=== PATIENT | female | born 1950 | race Caucasian/White ===

== ENCOUNTER 2023-07-27 08:10 | Inpatient (IN) | payer MEDICARE, BC ==
[~2023-07-27] VITALS: Ht 167.6 cm; Wt 144.6 kg
[2023-07-27 08:25] LABS: BASOPHILS % (AUTO) 0.7 % (0-1); EOSINOPHILS # (AUTO) 0.2 X10'3 (0-0.9); EOSINOPHILS % (AUTO) 5.4 % (0-6); HEMATOCRIT 35.5 % (35.0-45.0); HEMOGLOBIN 11.6 g/dl (12.0-16.0); LYMPHOCYTES # (AUTO) 0.9 X10'3 (1.1-4.8); LYMPHOCYTES % (AUTO) 28.4 % (21-51); MEAN CORPUSCULAR HEMOGLOBIN 33.4 PG (27.0-31.0); MEAN CORPUSCULAR HGB CONC 32.8 g/dL (33.0-36.5); MEAN CORPUSCULAR VOLUME 101.8 FL (78-98); MEAN PLATELET VOLUME 9.7 FL (7.4-10.4); MONOCYTES # (AUTO) 0.2 X10'3 (0-0.9); NEUTROPHILS # (AUTO) 1.9 X10'3 (1.8-7.7); NEUTROPHILS % (AUTO) 58.5 % (42-75); PLATELET COUNT 101 X10'3 (140-440); RED BLOOD COUNT 3.48 X10'6 (4.20-5.60); RED CELL DISTRIBUTION WIDTH 15.9 % (11.5-14.5); WHITE BLOOD COUNT 3.3 X10'3 (4.5-11.0)
[2023-07-27 09:37] LABS: ALBUMIN 2.9 G/DL (3.4-5.0); ANION GAP 11 (8-16); BLOOD UREA NITROGEN 16 MG/DL (7-18); BUN/CREATININE RATIO 12.8 (10.0-20.0); CHLORIDE 102 MMOL/L (99-107); CREATININE 1.25 MG/DL (0.40-0.90); GLUCOSE 116 MG/DL (70-104); POTASSIUM 3.7 MMOL/L (3.5-5.1); PRO BRAIN NATRIURETIC PEPTIDE 367 PG/ML (0-125); SODIUM 141 MMOL/L (135-145); TOTAL CARBON DIOXIDE 27.8 MMOL/L (24-32); eCRCL 38 ML/MIN; eGFR 42 ML/MIN
[2023-07-27] MEDS ORDERED: bisacodyl 10mg suppository rectal RC PRN (13:05)
[2023-07-27] MEDS ORDERED: ondansetron 4mg rapidly disintigrating tab PO PRN (13:05)
[2023-07-27] MEDS ORDERED: morphine 2 MG/ML inj. syringe IV PRN ×2 (13:05)
[2023-07-27] MEDS ORDERED: acetaminophen 325mg tablet PO PRN ×2 (13:05)
[2023-07-27] MEDS ORDERED: acetaminophen 650mg rectal suppository RC PRN (13:05)
[2023-07-27] MEDS: furosemide 40mg/4ml inj IV ONE (13:05)
[2023-07-27] MEDS ORDERED: ipratropium/albuterol 3ml nebule NEB PRN (13:05)
[2023-07-27] MEDS ORDERED: diphenhydrAMINE 50 mg/ml inj IV PRN (13:05)
[2023-07-27] MEDS ORDERED: HYDROcodone/acetaminophen 5mg/325mg tablet PO PRN (13:05)
[2023-07-27] MEDS ORDERED: ondansetron/PF 4mg/2ml inj IV PRN (13:05)
[2023-07-27] MEDS ORDERED: magnesium hydroxide 30ml (MOM) UD suspension PO PRN (13:05)
[2023-07-27] MEDS: normal saline 1000ml 1,000 ML IV SCH (13:33)
[2023-07-27 13:51] LABS: BILIRUBIN,URINE NEGATIVE (Neg); CLARITY,URINE SLIGHTLY CLOUDY (Clear); COLOR,URINE YELLOW (Yellow); GLUCOSE, URINE NEGATIVE (Neg); KETONES,URINE NEGATIVE (Neg); LEUKOCYTE ESTERASE ,URINE NEGATIVE (Neg); NITRITES, URINE NEGATIVE (Neg); OCCULT BLOOD,URINE NEGATIVE (Neg); PROTEIN,URINE NEGATIVE (Neg); UROBILINOGEN,URINE 0.2 E.U/dL (0.2-1.0)
[2023-07-27] MEDS ORDERED: PANT40TA54 PO (13:53)
[2023-07-27] MEDS ORDERED: ATOR40TA72 PO (13:57)
[2023-07-27] MEDS ORDERED: LOSA25TA41 PO (13:57)
[2023-07-27 14:00] LABS: UA COLLECTION TYPE CLN CATCH MIDSTREAM
[2023-07-27 14:02] LABS: URINE AMPHETAMINE SCREEN NEGATIVE (Neg); URINE BARBITUATE SCREEN NEGATIVE (Neg); URINE BENZODIAZEPINES SCREEN NEGATIVE (Neg); URINE CANNABINOID SCREEN NEGATIVE (Neg); URINE COCAINE SCREEN NEGATIVE (Neg); URINE METHADONE SCREEN NEGATIVE (Neg); URINE OPIATE SCREEN NEGATIVE (Neg); URINE PHENCYCLIDINE SCREEN NEGATIVE (Neg)
[2023-07-27 14:03] LABS: BACTERIA,URINE NONE SEEN /HPF (Neg); RBC,URINE NONE SEEN /HPF (0-2); SQUAMOUS EPITHELIAL CELL,UR NONE SEEN /LPF (FEW); WBC,URINE NONE SEEN /HPF (0-4)
[2023-07-27 14:08] LABS: CREATINE KINASE 39 U/L (26-192); HEMOGLOBIN A1C 5.5 % (4.5-6.2); PHOSPHORUS 3.5 MG/DL (2.3-4.5); THYROID STIMULATING HORMONE 7.59 ulU/ml (0.34-4.50)
[2023-07-27 14:09] LABS: ETHANOL < 10 MG/DL (<10)
[2023-07-27 14:10] LABS: APTT 28 SECONDS (22-32); D-DIMER 1.33 MG/L FEU (0-0.50); INR 1.1 INR; PROTHROMBIN TIME 11.8 SECONDS (9.0-12.0)
[2023-07-27] MEDS ORDERED: FURO20TA4 PO (14:11)
[2023-07-27] MEDS ORDERED: METO25TA6 PO (14:13)
[2023-07-27] MEDS ORDERED: CYAN-34 PO ×2 (14:14→14:29)
[2023-07-27] MEDS ORDERED: FURO-150 PO (14:29)
[2023-07-27 14:43] VITALS: PULSE 64; RESP 15; O2SAT 98
[2023-07-27] MEDS: heparin, porcine 5000 units/ml vial SQ SCH (16:20)
[2023-07-27 19:05] VITALS: BP 121/41; PULSE 74; RESP 16; TEMP 98.7; O2SAT 96
[2023-07-27 19:55] VITALS: PULSE 74; RESP 16; O2SAT 96
[2023-07-27 20:00] VITALS: RESP 13; O2SAT 92
[2023-07-27] MEDS: docusate sod 100mg capsule PO SCH (20:02)
[2023-07-27] MEDS: furosemide 40mg/4ml inj IV SCH (20:03)
[2023-07-27] MEDS: HYDROcodone/acetaminophen 10/325mg tab PO PRN (20:03)
[2023-07-27] MEDS: mag hydrox/Alum hydrox/simeth 30ml oral suspension PO PRN (20:23)
[2023-07-27 22:00] VITALS: BP 118/39; PULSE 75; RESP 13; TEMP 98.7; O2SAT 92
[2023-07-28] VITALS (7 sets, daily range): BP systolic 109–125; BP diastolic 41–48; PULSE 56–76; RESP 12–20; TEMP 97.9–98.4; O2SAT 92–97
[2023-07-28] MEDS: pantoprazole 40mg Tablet.DR PO SCH (08:15)
[2023-07-28 09:05] LABS: BASOPHILS % (AUTO) 0.7 % (0-1); EOSINOPHILS # (AUTO) 0.1 X10'3 (0-0.9); EOSINOPHILS % (AUTO) 5.4 % (0-6); HEMATOCRIT 32.5 % (35.0-45.0); HEMOGLOBIN 10.7 g/dl (12.0-16.0); LYMPHOCYTES # (AUTO) 0.9 X10'3 (1.1-4.8); LYMPHOCYTES % (AUTO) 32.8 % (21-51); MEAN CORPUSCULAR HEMOGLOBIN 33.5 PG (27.0-31.0); MEAN CORPUSCULAR VOLUME 101.6 FL (78-98); MEAN PLATELET VOLUME 10.5 FL (7.4-10.4); MONOCYTES # (AUTO) 0.2 X10'3 (0-0.9); NEUTROPHILS # (AUTO) 1.5 X10'3 (1.8-7.7); NEUTROPHILS % (AUTO) 54.1 % (42-75); PLATELET COUNT 84 X10'3 (140-440); RED CELL DISTRIBUTION WIDTH 15.8 % (11.5-14.5); WHITE BLOOD COUNT 2.7 X10'3 (4.5-11.0)
[2023-07-28 10:42] LABS: ANISOCYTOSIS 1+; PLATELET ESTIMATE DECREASED; TOTAL CELLS COUNTED 100
[2023-07-28 11:59] LABS: ALANINE AMINOTRANSFERASE 30 U/L (12-78); ALBUMIN 2.5 G/DL (3.4-5.0); ALBUMIN/GLOBULIN RATIO 0.7 (1.1-1.5); ALKALINE PHOSPHATASE 115 IU/L (46-116); ANION GAP 13 (8-16); ASPARTATE AMINO TRANSFERASE 44 U/L (10-37); BILIRUBIN,TOTAL 0.9 MG/DL (0.1-1.0); BLOOD UREA NITROGEN 15 MG/DL (7-18); BUN/CREATININE RATIO 13.6 (10.0-20.0); CALCIUM 8.9 MG/DL (8.5-10.1); CHLORIDE 104 MMOL/L (99-107); CHOL/HDL RATIO 2.4 (0.00-4.99); CHOLESTEROL 107 MG/DL (0-200); GLUCOSE 104 MG/DL (70-104); HDL CHOLESTEROL 44 MG/DL (35-60); LDL CHOLESTEROL 56 MG/DL (50-100); POTASSIUM 3.5 MMOL/L (3.5-5.1); SODIUM 144 MMOL/L (135-145); TOTAL CARBON DIOXIDE 26.9 MMOL/L (24-32); TOTAL PROTEIN 6.1 G/DL (6.4-8.2); TRIGLYCERIDES 68 MG/DL (20-135); eCRCL 43 ML/MIN; eGFR 49 ML/MIN
[2023-07-28] MEDS ORDERED: LORA10CA PO (13:34)
[2023-07-28] MEDS: heparin, porcine 5000 units/ml vial SQ SCH (19:16)
[2023-07-29] VITALS (8 sets, daily range): BP systolic 104–125; BP diastolic 44–48; PULSE 62–79; RESP 16–22; TEMP 97.4–98.7; O2SAT 95–100
[2023-07-29 06:43] LABS: BASOPHILS % (AUTO) 0.8 % (0-1); EOSINOPHILS # (AUTO) 0.2 X10'3 (0-0.9); EOSINOPHILS % (AUTO) 8.2 % (0-6); HEMATOCRIT 33.4 % (35.0-45.0); HEMOGLOBIN 11.1 g/dl (12.0-16.0); LYMPHOCYTES # (AUTO) 0.8 X10'3 (1.1-4.8); LYMPHOCYTES % (AUTO) 30.4 % (21-51); MEAN CORPUSCULAR HEMOGLOBIN 33.7 PG (27.0-31.0); MEAN CORPUSCULAR HGB CONC 33.2 g/dL (33.0-36.5); MEAN CORPUSCULAR VOLUME 101.4 FL (78-98); MEAN PLATELET VOLUME 10.2 FL (7.4-10.4); MONOCYTES # (AUTO) 0.2 X10'3 (0-0.9); MONOCYTES % (AUTO) 7.6 % (2-12); NEUTROPHILS # (AUTO) 1.4 X10'3 (1.8-7.7); PLATELET COUNT 82 X10'3 (140-440); WHITE BLOOD COUNT 2.7 X10'3 (4.5-11.0)
[2023-07-29 07:15] LABS: ALANINE AMINOTRANSFERASE 26 U/L (12-78); ALBUMIN 2.3 G/DL (3.4-5.0); ALBUMIN/GLOBULIN RATIO 0.6 (1.1-1.5); ALKALINE PHOSPHATASE 112 IU/L (46-116); ANION GAP 7 (8-16); ASPARTATE AMINO TRANSFERASE 48 U/L (10-37); BILIRUBIN,TOTAL 0.9 MG/DL (0.1-1.0); BLOOD UREA NITROGEN 13 MG/DL (7-18); BUN/CREATININE RATIO 11.2 (10.0-20.0); CALCIUM 8.6 MG/DL (8.5-10.1); CHLORIDE 105 MMOL/L (99-107); CREATININE 1.16 MG/DL (0.40-0.90); GLUCOSE 114 MG/DL (70-104); POTASSIUM 3.4 MMOL/L (3.5-5.1); SODIUM 142 MMOL/L (135-145); TOTAL PROTEIN 5.9 G/DL (6.4-8.2); eCRCL 41 ML/MIN; eGFR 46 ML/MIN
[2023-07-29 07:26] LABS: TOTAL CELLS COUNTED 100
[2023-07-29 07:27] LABS: ANISOCYTOSIS 1+; PLATELET ESTIMATE DECREASED
[2023-07-29] MEDS: albumin (Human) 5% 250ml 250 ML IV ONE (17:45)
[2023-07-29] MEDS: temazepam 15mg capsule PO PRN (20:40)
[2023-07-30] VITALS (7 sets, daily range): BP systolic 102–125; BP diastolic 51–75; PULSE 63–74; RESP 14–17; TEMP 97–98.4; O2SAT 96–99
[2023-07-30] MEDS ORDERED: magnesium 4gm in 100ml NS 100 ML IV PRN (01:00)
[2023-07-30] MEDS ORDERED: potassium Cl 40MEQ/1/2NS 520ml 520 ML IV PRN (01:00)
[2023-07-30] MEDS ORDERED: magnesium 2GM in 50ml NS 50 ML IV PRN (01:00)
[2023-07-30] MEDS ORDERED: potassium Cl 20 mEq SR tablet PO PRN (01:00)
[2023-07-30] MEDS ORDERED: magnesium Cl slow-release 64mg tablet PO PRN (01:00)
[2023-07-30] MEDS: potassium Cl 20 mEq SR tablet PO PRN (01:18)
[2023-07-30] MEDS: simethicone 80mg chew tab PO PRN (01:18)
[2023-07-30 06:45] LABS: BASOPHILS % (AUTO) 0.9 % (0-1); EOSINOPHILS # (AUTO) 0.3 X10'3 (0-0.9); EOSINOPHILS % (AUTO) 11.2 % (0-6); HEMATOCRIT 35.1 % (35.0-45.0); HEMOGLOBIN 11.7 g/dl (12.0-16.0); LYMPHOCYTES # (AUTO) 0.7 X10'3 (1.1-4.8); MEAN CORPUSCULAR HEMOGLOBIN 33.9 PG (27.0-31.0); MEAN CORPUSCULAR HGB CONC 33.4 g/dL (33.0-36.5); MEAN CORPUSCULAR VOLUME 101.7 FL (78-98); MEAN PLATELET VOLUME 10.3 FL (7.4-10.4); MONOCYTES # (AUTO) 0.2 X10'3 (0-0.9); MONOCYTES % (AUTO) 6.5 % (2-12); NEUTROPHILS # (AUTO) 1.6 X10'3 (1.8-7.7); NEUTROPHILS % (AUTO) 56.4 % (42-75); PLATELET COUNT 88 X10'3 (140-440); RED BLOOD COUNT 3.45 X10'6 (4.20-5.60); RED CELL DISTRIBUTION WIDTH 15.6 % (11.5-14.5); WHITE BLOOD COUNT 2.8 X10'3 (4.5-11.0)
[2023-07-30 06:56] LABS: ALANINE AMINOTRANSFERASE 33 U/L (12-78); ALBUMIN 2.5 G/DL (3.4-5.0); ALBUMIN/GLOBULIN RATIO 0.7 (1.1-1.5); ALKALINE PHOSPHATASE 109 IU/L (46-116); ANION GAP 7 (8-16); ASPARTATE AMINO TRANSFERASE 52 U/L (10-37); BILIRUBIN,TOTAL 0.9 MG/DL (0.1-1.0); BLOOD UREA NITROGEN 10 MG/DL (7-18); BUN/CREATININE RATIO 8.8 (10.0-20.0); CALCIUM 8.7 MG/DL (8.5-10.1); CHLORIDE 102 MMOL/L (99-107); CREATININE 1.13 MG/DL (0.40-0.90); GLUCOSE 114 MG/DL (70-104); MAGNESIUM 1.9 MG/DL (1.5-2.4); POTASSIUM 3.3 MMOL/L (3.5-5.1); SODIUM 142 MMOL/L (135-145); TOTAL CARBON DIOXIDE 33.2 MMOL/L (24-32); TOTAL PROTEIN 6.1 G/DL (6.4-8.2); eCRCL 42 ML/MIN; eGFR 47 ML/MIN
[2023-07-30] MEDS: K and/or MAG REPLACEMENT MC SCH (08:00)
[2023-07-30 08:32] LABS: PLATELET ESTIMATE DECREASED; TOTAL CELLS COUNTED 100
[2023-07-30] MEDS: atorvastatin 20mg tablet PO SCH (20:32)
[2023-07-31] VITALS (9 sets, daily range): BP systolic 106–115; BP diastolic 42–53; PULSE 63–74; RESP 14–18; TEMP 97–98.5; O2SAT 92–99
[2023-07-31 06:33] LABS: BASOPHILS % (AUTO) 0.7 % (0-1); EOSINOPHILS # (AUTO) 0.3 X10'3 (0-0.9); EOSINOPHILS % (AUTO) 10.3 % (0-6); HEMATOCRIT 33.1 % (35.0-45.0); HEMOGLOBIN 11.1 g/dl (12.0-16.0); LYMPHOCYTES # (AUTO) 0.8 X10'3 (1.1-4.8); MEAN CORPUSCULAR HEMOGLOBIN 34.1 PG (27.0-31.0); MEAN CORPUSCULAR HGB CONC 33.6 g/dL (33.0-36.5); MEAN CORPUSCULAR VOLUME 101.4 FL (78-98); MEAN PLATELET VOLUME 10.2 FL (7.4-10.4); MONOCYTES # (AUTO) 0.3 X10'3 (0-0.9); MONOCYTES % (AUTO) 8.7 % (2-12); NEUTROPHILS # (AUTO) 1.7 X10'3 (1.8-7.7); NEUTROPHILS % (AUTO) 54.3 % (42-75); PLATELET COUNT 87 X10'3 (140-440); RED BLOOD COUNT 3.26 X10'6 (4.20-5.60); RED CELL DISTRIBUTION WIDTH 15.2 % (11.5-14.5); WHITE BLOOD COUNT 3.1 X10'3 (4.5-11.0)
[2023-07-31 06:52] LABS: ALANINE AMINOTRANSFERASE 29 U/L (12-78); ALBUMIN 2.4 G/DL (3.4-5.0); ALBUMIN/GLOBULIN RATIO 0.7 (1.1-1.5); ALKALINE PHOSPHATASE 102 IU/L (46-116); ANION GAP 8 (8-16); ASPARTATE AMINO TRANSFERASE 49 U/L (10-37); BLOOD UREA NITROGEN 10 MG/DL (7-18); BUN/CREATININE RATIO 8.8 (10.0-20.0); CALCIUM 8.7 MG/DL (8.5-10.1); CHLORIDE 103 MMOL/L (99-107); CREATININE 1.14 MG/DL (0.40-0.90); GLUCOSE 110 MG/DL (70-104); MAGNESIUM 1.8 MG/DL (1.5-2.4); POTASSIUM 3.5 MMOL/L (3.5-5.1); SODIUM 143 MMOL/L (135-145); TOTAL CARBON DIOXIDE 31.9 MMOL/L (24-32); TOTAL PROTEIN 5.8 G/DL (6.4-8.2); eCRCL 42 ML/MIN; eGFR 47 ML/MIN
[2023-07-31] MEDS: levoTHYROXINE 25mcg tablet PO SCH (07:58)
[2023-08-01 06:00] VITALS: BP 111/44; PULSE 65; RESP 16; TEMP 97.9; O2SAT 94
[2023-08-01 06:47] LABS: EOSINOPHILS # (AUTO) 0.2 X10'3 (0-0.9); EOSINOPHILS % (AUTO) 9.2 % (0-6); HEMATOCRIT 35.6 % (35.0-45.0); HEMOGLOBIN 11.7 g/dl (12.0-16.0); LYMPHOCYTES # (AUTO) 0.7 X10'3 (1.1-4.8); LYMPHOCYTES % (AUTO) 27.8 % (21-51); MEAN CORPUSCULAR HEMOGLOBIN 33.4 PG (27.0-31.0); MEAN CORPUSCULAR HGB CONC 32.9 g/dL (33.0-36.5); MEAN CORPUSCULAR VOLUME 101.4 FL (78-98); MEAN PLATELET VOLUME 9.8 FL (7.4-10.4); MONOCYTES # (AUTO) 0.2 X10'3 (0-0.9); MONOCYTES % (AUTO) 7.8 % (2-12); NEUTROPHILS # (AUTO) 1.4 X10'3 (1.8-7.7); NEUTROPHILS % (AUTO) 54.2 % (42-75); PLATELET COUNT 70 X10'3 (140-440); RED BLOOD COUNT 3.51 X10'6 (4.20-5.60); RED CELL DISTRIBUTION WIDTH 15.2 % (11.5-14.5); WHITE BLOOD COUNT 2.6 X10'3 (4.5-11.0)
[2023-08-01 07:04] LABS: ALANINE AMINOTRANSFERASE 30 U/L (12-78); ALBUMIN 2.3 G/DL (3.4-5.0); ALBUMIN/GLOBULIN RATIO 0.7 (1.1-1.5); ALKALINE PHOSPHATASE 109 IU/L (46-116); ANION GAP 5 (8-16); ASPARTATE AMINO TRANSFERASE 57 U/L (10-37); BILIRUBIN,TOTAL 1.1 MG/DL (0.1-1.0); BLOOD UREA NITROGEN 9 MG/DL (7-18); BUN/CREATININE RATIO 7.6 (10.0-20.0); CALCIUM 8.3 MG/DL (8.5-10.1); CHLORIDE 102 MMOL/L (99-107); CREATININE 1.18 MG/DL (0.40-0.90); GLUCOSE 116 MG/DL (70-104); MAGNESIUM 1.8 MG/DL (1.5-2.4); POTASSIUM 3.3 MMOL/L (3.5-5.1); SODIUM 140 MMOL/L (135-145); TOTAL CARBON DIOXIDE 32.7 MMOL/L (24-32); TOTAL PROTEIN 5.8 G/DL (6.4-8.2); eCRCL 40 ML/MIN; eGFR 45 ML/MIN
[2023-08-01 08:00] VITALS: RESP 14; O2SAT 94
[2023-08-01 09:53] LABS: PLATELET ESTIMATE DECREASED; TOTAL CELLS COUNTED 100
[2023-08-01 10:00] VITALS: BP 102/53; PULSE 70; RESP 16; TEMP 97.7; O2SAT 94
[2023-08-01] MEDS ORDERED: FURO-150 PO (13:23)
[2023-08-01] MEDS ORDERED: ALBU18HF2 IH (13:23)
[2023-08-01] MEDS ORDERED: LEVO25TA7 PO (13:23)
[2023-08-01] MEDS ORDERED: IPRA3AMP9 NEB (13:23)
== END 2023-08-01 14:50 | disposition home health service (06) | DRG 291 ==
LOC: ER 08:10 → ED HOLD 13:34 → EDBEDREQ 16:37 → EDBEDREQSVC 16:37 → ORTHO 4S 18:55
PROVIDERS: ADMIT Family Medicine; ATTEND Family Medicine
DX: I13.0 Hypertensive heart and chronic kidney disease with heart failure and stage 1 through stage 4 chronic kidney disease, or unspecified chronic kidney disease (principal); I50.33 Acute on chronic diastolic (congestive) heart failure; N17.0 Acute kidney failure with tubular necrosis; D61.818 Other pancytopenia; Z68.43 Body mass index [BMI] 50.0-59.9, adult; E66.01 Morbid (severe) obesity due to excess calories; K21.9 Gastro-esophageal reflux disease without esophagitis; E03.9 Hypothyroidism, unspecified; N18.9 Chronic kidney disease, unspecified; Z96.651 Presence of right artificial knee joint; L30.8 Other specified dermatitis; E88.09 Other disorders of plasma-protein metabolism, not elsewhere classified; I95.9 Hypotension, unspecified; E87.6 Hypokalemia; I27.20 Pulmonary hypertension, unspecified; E78.5 Hyperlipidemia, unspecified; Z79.899 Other long term (current) drug therapy
CPT/HCPCS: 36415; 71045; 74176; 80048; 80053; 80061; 80305; 80320; 81001; 82550; 83036; 83605; 83735; 83880; 84100; 84443; 84484; 85007; 85025; 85379; 85610; 85730; 87040; 87081; 93005; 93306; 94760; 96374; 97161; 97530; 99285; A4615; A6449; G0378; J1644; J1940; J7030; P9045

== ENCOUNTER 2023-12-19 08:31 | Emergency (ER) | payer MEDICARE, BC ==
[~2023-12-19] VITALS: Ht 167.6 cm; Wt 138.0 kg
[~2023-12-19 08:31] MED LIST: ALBU18HF2 IH; ATOR40TA72 PO; CYAN-34 PO; FURO-150 PO; IPRA3AMP9 NEB; LEVO25TA7 PO; LOSA25TA41 PO; METO25TA6 PO; PANT40TA54 PO
[2023-12-19 08:42] VITALS: TEMP 97.2
[2023-12-19 08:55] LABS: BASOPHILS % (AUTO) 0.6 % (0-1); EOSINOPHILS # (AUTO) 0.2 X10'3 (0-0.9); EOSINOPHILS % (AUTO) 3.9 % (0-6); HEMATOCRIT 33.9 % (35.0-45.0); HEMOGLOBIN 11.3 g/dl (12.0-16.0); LYMPHOCYTES # (AUTO) 1.1 X10'3 (1.1-4.8); LYMPHOCYTES % (AUTO) 26.4 % (21-51); MEAN CORPUSCULAR HEMOGLOBIN 35.4 PG (27.0-31.0); MEAN CORPUSCULAR HGB CONC 33.2 g/dL (33.0-36.5); MEAN CORPUSCULAR VOLUME 106.4 FL (78-98); MEAN PLATELET VOLUME 10.6 FL (7.4-10.4); MONOCYTES # (AUTO) 0.3 X10'3 (0-0.9); MONOCYTES % (AUTO) 6.8 % (2-12); NEUTROPHILS # (AUTO) 2.7 X10'3 (1.8-7.7); NEUTROPHILS % (AUTO) 62.3 % (42-75); PLATELET COUNT 106 X10'3 (140-440); RED BLOOD COUNT 3.18 X10'6 (4.20-5.60); RED CELL DISTRIBUTION WIDTH 14.4 % (11.5-14.5); WHITE BLOOD COUNT 4.3 X10'3 (4.5-11.0)
[2023-12-19] MEDS ORDERED: METO-395 PO (09:05)
[2023-12-19] MEDS ORDERED: POTA-208 PO (09:05)
[2023-12-19] MEDS ORDERED: FURO20TA4 PO (09:05)
[2023-12-19] MEDS ORDERED: METO-539 PO (09:09)
[2023-12-19] MEDS ORDERED: SACU1TAB PO (09:10)
[2023-12-19 09:18] LABS: ALANINE AMINOTRANSFERASE 35 U/L (12-78); ALBUMIN 2.8 G/DL (3.4-5.0); ALBUMIN/GLOBULIN RATIO 0.7 (1.1-1.5); ALKALINE PHOSPHATASE 161 IU/L (46-116); ANION GAP 9 (8-16); ASPARTATE AMINO TRANSFERASE 40 U/L (10-37); BILIRUBIN,TOTAL 1.7 MG/DL (0.1-1.0); BLOOD UREA NITROGEN 18 MG/DL (7-18); BUN/CREATININE RATIO 11.5 (10.0-20.0); CALCIUM 8.7 MG/DL (8.5-10.1); CHLORIDE 99 MMOL/L (99-107); CREATININE 1.57 MG/DL (0.40-0.90); GLUCOSE 104 MG/DL (70-104); POTASSIUM 3.7 MMOL/L (3.5-5.1); SODIUM 136 MMOL/L (135-145); TOTAL CARBON DIOXIDE 27.9 MMOL/L (24-32); TOTAL PROTEIN 6.9 G/DL (6.4-8.2); eCRCL 30 ML/MIN; eGFR 32 ML/MIN
[2023-12-19 09:26] LABS: PRO BRAIN NATRIURETIC PEPTIDE 445 PG/ML (0-125)
[2023-12-19] MEDS: normal saline 1000ML IV soln IVB ONE (10:50)
[2023-12-19 12:15] VITALS: BP 112/74; PULSE 74; RESP 16; O2SAT 98
== END 2023-12-19 12:16 | disposition home or self-care (01) ==
LOC: ER 08:32
DX: I95.2 Hypotension due to drugs (principal); Z79.899 Other long term (current) drug therapy
CPT/HCPCS: 36415; 71045; 80053; 83880; 84484; 85025; 93005; 99285; J7030

== ENCOUNTER 2024-02-07 11:54 | Emergency (ER) | payer MEDICARE, BC ==
[~2024-02-07] VITALS: Ht 167.6 cm; Wt 126.6 kg
[~2024-02-07 11:54] MED LIST changes: -CYAN-34 PO; -FURO-150 PO; +FURO20TA4 PO; -LEVO25TA7 PO; -LOSA25TA41 PO; +METO-395 PO; -METO25TA6 PO; +SACU1TAB PO
[2024-02-07 12:12] VITALS: TEMP 97.7
[2024-02-07 13:06] LABS: BASOPHILS % (AUTO) 0.4 % (0-1); EOSINOPHILS # (AUTO) 0.2 X10'3 (0-0.9); EOSINOPHILS % (AUTO) 4.1 % (0-6); HEMATOCRIT 34.1 % (35.0-45.0); HEMOGLOBIN 11.2 g/dl (12.0-16.0); LYMPHOCYTES # (AUTO) 0.5 X10'3 (1.1-4.8); LYMPHOCYTES % (AUTO) 14.8 % (21-51); MEAN CORPUSCULAR HEMOGLOBIN 34.2 PG (27.0-31.0); MEAN CORPUSCULAR HGB CONC 32.9 g/dL (33.0-36.5); MEAN CORPUSCULAR VOLUME 103.9 FL (78-98); MEAN PLATELET VOLUME 10.7 FL (7.4-10.4); MONOCYTES # (AUTO) 0.2 X10'3 (0-0.9); MONOCYTES % (AUTO) 6.1 % (2-12); NEUTROPHILS # (AUTO) 2.7 X10'3 (1.8-7.7); NEUTROPHILS % (AUTO) 74.6 % (42-75); PLATELET COUNT 72 X10'3 (140-440); RED BLOOD COUNT 3.28 X10'6 (4.20-5.60); RED CELL DISTRIBUTION WIDTH 14.1 % (11.5-14.5); WHITE BLOOD COUNT 3.6 X10'3 (4.5-11.0)
[2024-02-07 13:25] LABS: ALANINE AMINOTRANSFERASE 22 U/L (12-78); ALBUMIN 2.9 G/DL (3.4-5.0); ALBUMIN/GLOBULIN RATIO 0.8 (1.1-1.5); ALKALINE PHOSPHATASE 147 IU/L (46-116); ANION GAP 8 (8-16); ASPARTATE AMINO TRANSFERASE 33 U/L (10-37); BLOOD UREA NITROGEN 19 MG/DL (7-18); BUN/CREATININE RATIO 13.9 (10.0-20.0); CALCIUM 9.2 MG/DL (8.5-10.1); CHLORIDE 98 MMOL/L (99-107); CREATININE 1.37 MG/DL (0.40-0.90); GLUCOSE 115 MG/DL (70-104); SODIUM 126 MMOL/L (135-145); TOTAL CARBON DIOXIDE 19.8 MMOL/L (24-32); TOTAL PROTEIN 6.5 G/DL (6.4-8.2); eCRCL 35 ML/MIN; eGFR 38 ML/MIN
[2024-02-07 13:42] LABS: POTASSIUM 6.1 MMOL/L (3.5-5.1)
[2024-02-07] MEDS: albuterol 2.5 MG/3 ML nebule CONTNEB ONE (14:04)
[2024-02-07 14:05] VITALS: PULSE 61; RESP 19; O2SAT 98
[2024-02-07] MEDS: normal saline 1000ML IV soln IVB ONE (14:07)
[2024-02-07 14:54] VITALS: PULSE 67; RESP 28; O2SAT 98
[2024-02-07 16:49] VITALS: BP 133/74; PULSE 65; RESP 18; O2SAT 99
== END 2024-02-07 16:54 | disposition home or self-care (01) ==
LOC: ER 11:54
DX: S01.81XA Laceration without foreign body of other part of head, initial encounter (principal); S06.0X0A Concussion without loss of consciousness, initial encounter; I10 Essential (primary) hypertension; E87.5 Hyperkalemia; D69.6 Thrombocytopenia, unspecified; Z79.899 Other long term (current) drug therapy; W19.XXXA Unspecified fall, initial encounter; Y93.89 Activity, other specified; Y92.89 Other specified places as the place of occurrence of the external cause; Y99.8 Other external cause status
CPT/HCPCS: 36415; 70450; 80053; 85025; 93005; 94640; 96360; 99284; A6402; J7030; 94760; 99285; A6449

== ENCOUNTER 2024-08-26 12:27 | Outpatient (CLI) | payer MEDICARE, BC ==
[2024-08-26 13:06] LABS: BASOPHILS % (AUTO) 0.5 % (0-1); EOSINOPHILS # (AUTO) 0.1 X10'3 (0-0.9); EOSINOPHILS % (AUTO) 3.6 % (0-6); HEMATOCRIT 30.7 % (35.0-45.0); HEMOGLOBIN 10.4 g/dl (12.0-16.0); LYMPHOCYTES # (AUTO) 0.7 X10'3 (1.1-4.8); LYMPHOCYTES % (AUTO) 23.1 % (21-51); MEAN CORPUSCULAR HEMOGLOBIN 33.5 PG (27.0-31.0); MEAN CORPUSCULAR VOLUME 98.4 FL (78-98); MEAN PLATELET VOLUME 10.1 FL (7.4-10.4); MONOCYTES # (AUTO) 0.2 X10'3 (0-0.9); MONOCYTES % (AUTO) 6.2 % (2-12); NEUTROPHILS % (AUTO) 66.6 % (42-75); PLATELET COUNT 68 X10'3 (140-440); RED BLOOD COUNT 3.12 X10'6 (4.20-5.60); RED CELL DISTRIBUTION WIDTH 18.4 % (11.5-14.5)
[2024-08-26 13:21] LABS: ALANINE AMINOTRANSFERASE 29 U/L (12-78); ALBUMIN 3.3 G/DL (3.4-5.0); ALBUMIN/GLOBULIN RATIO 0.8 (1.1-1.5); ALKALINE PHOSPHATASE 148 IU/L (46-116); ANION GAP 9 (8-16); ASPARTATE AMINO TRANSFERASE 33 U/L (10-37); BILIRUBIN,TOTAL 1.1 MG/DL (0.1-1.0); BLOOD UREA NITROGEN 33 MG/DL (7-18); BUN/CREATININE RATIO 21.3 (10.0-20.0); CHLORIDE 101 MMOL/L (99-107); CREATININE 1.55 MG/DL (0.40-0.90); GLUCOSE 113 MG/DL (70-104); POTASSIUM 4.5 MMOL/L (3.5-5.1); SODIUM 134 MMOL/L (135-145); TOTAL CARBON DIOXIDE 24.5 MMOL/L (24-32); TOTAL PROTEIN 7.2 G/DL (6.4-8.2); eGFR 33 ML/MIN
[2024-08-26 13:30] LABS: PRO BRAIN NATRIURETIC PEPTIDE 532 PG/ML (0-125)
[2024-08-26 14:38] LABS: ANISOCYTOSIS 2+; PLATELET ESTIMATE DECREASED
== END 2024-08-26 23:59 | disposition home or self-care (01) ==
LOC: LAB 12:27
PROVIDERS: ATTEND Nurse Practitioner Family
DX: N18.30 Chronic kidney disease, stage 3 unspecified (principal); R74.8 Abnormal levels of other serum enzymes; D64.9 Anemia, unspecified; D69.6 Thrombocytopenia, unspecified; I50.9 Heart failure, unspecified
CPT/HCPCS: 80053; 83880; 85008; 85025

== ENCOUNTER 2024-12-17 19:58 | Inpatient (IN) | payer MEDICARE, BC ==
[~2024-12-17] VITALS: Ht 170.2 cm; Wt 118.5 kg
[2024-12-17 20:35] LABS: MEAN PLATELET VOLUME 10.5 FL (7.4-10.4); RED CELL DISTRIBUTION WIDTH 14.7 % (11.5-14.5)
[2024-12-17 20:39] LABS: CREATININE 2.73 MG/DL (0.40-0.90); PRO BRAIN NATRIURETIC PEPTIDE 932 PG/ML (0-125); TOTAL CARBON DIOXIDE 21.7 MMOL/L (24-32); eCRCL 18 ML/MIN; eGFR 17 ML/MIN
--- NOTE | 2024-12-17 20:50 | RADIOLOGY REPORT ---
CHEST RADIOGRAPH Indication: CP Technique: Single frontal view of the chest was obtained Comparison: DI CHEST,SINGLE VIEW on DOS: 12/19/23, DI CHEST,SINGLE VIEW on DOS: 07/27/23 FINDINGS: Lines and Tubes: None Lungs: No focal consolidation. Pleura: No effusion. No pneumothorax. Cardiomediastinal contours: Borderline cardiomegaly Bones: No acute osseous abnormality. IMPRESSION: No acute cardiopulmonary disease.
[2024-12-18] VITALS (16 sets, daily range): BP systolic 90–129; BP diastolic 38–66; PULSE 50–71; RESP 14–22; TEMP 97.2–98.6; O2SAT 96–100
--- NOTE | 2024-12-18 01:14 | Physician Documentation ---
History of Present Illness ~ Chief Complaint: Chest Pain Stated Complaint: CP Time Seen by MD: 00:58 OK to notify your PCP?: Yes Primary Medical Doctor: dalton Source: patient, RN/, RN notes reviewed, old records Mode of Arrival: POV Exam Limitations: no limitations HPI 74 year old female with history of GERD, and CHF seen in bed 11 presents to the emergency department for complaints of chest pain that has been present for one week. Patient describes her pain as a tightness in her chest with nausea. Additionally she complains of shaking and feeling, wobbly. Patient denies any vomiting. She states she has an appointment with Dr. Ardon this month and her last stress test was one year ago. Patient endorses use of Lasix and aspirin. Medication Reconciliation Allergies: Coded Allergies: No Known Allergies (Unverified , 12/17/24) Scheduled Atorvastatin Calcium (Atorvastatin Calcium), 1 TAB PO HS, (Reported) Furosemide (Furosemide), 60 MG PO BID, (Reported) Metoprolol Succinate (Metoprolol Succinate), 1 TAB PO DAILY, (Reported) Pantoprazole Sodium (Pantoprazole Sodium), 1 TAB PO HS, (Reported) Sacubitril/Valsartan (Entresto 24 mg-26 mg Tablet), 1 TAB PO Q12H, (Reported) Spironolactone (Spironolactone), 1 TAB PO DAILY, (Reported) Scheduled PRN Ipratropium/Albuterol Sulfate (IPRAT-ALBUT 0.5-3(2.5) MG/3 ML nebule), 3 ML NEB Q6H PRN for SOB or wheezing Discontinued Medications Albuterol Sulfate (Ventolin Hfa), 2 PUFFS IH 5XD PRN for SOB or wheezing Discontinued Reason: patient no longer taking Past Medical History Past Medical History: Atrial Fibrillation, Congestive Heart Failure, Hypertension, GERD, Anemia Review of Systems All Other Systems at this time: Reviewed and Negative ROS As stated above in the HPI, otherwise all systems are reviewed and negative. Physical Exam Vital Signs: RN Vital Signs have been reviewed: Yes, Temperature: 98.4, Source: Temporal, Heart Rate: 68, Respiratory Rate: 18, BP: 200/74, Pulse Oximetry: 100, Weight: 124.500 Oxygen Flow Rate: 0 Pulse Oximetry Reflects: adequate oxygenation Physical Exam General: The patient is well developed, well nourished, nontoxic appearing and is in no acute distress. Skin: Reeder, warm and dry with no rashes. HEENT: Head was normocephalic and atraumatic. Eyes - pupils equal, round, reactive to light and accommodation. Extraocular movements were intact. Conjunctivae were nonicteric. Ears - bilateral tympanic membranes were normal. The mouth and oropharynx were clear with moist mucous membranes. There were no pharyngeal exudates or erythema. Neck: Supple and nontender. There was no jugular venous distention, lymphadenopathy, thyromegaly or masses. Chest: Clear to auscultation bilaterally without wheezes, rales or rhonchi. No accessory muscle use. No dullness to percussion. Heart: Rate regular and rhythmic. S1, S2. No murmurs. Palpation of the chest wall was normal. No rubs or thrills. Abdomen: Soft, nontender and nondistended. hyperactive bowel sounds. No guarding or rebound. No hepatosplenomegaly or palpable masses. Extremities: No cyanosis, clubbing or edema. The patient moves all extremities. Pulses were equal and symmetric. Neurologic: Cranial nerves II-XII were intact. Sensation was intact to light touch throughout. Motor strength was 5/5 in all four extremities. Deep tendon reflexes were intact in both upper and lower extremities. Psychologic: The patient was oriented to person, place and time. The patient demonstrated appropriate judgement and insight. Progress Progress Note 0134: The case was discussed with the hospitalist who was informed on the patients case and kindly agreed to admission. Results/Orders Reviewed/noted all lab results: Yes Results/Orders Orders - LAWSON HERCULES MD Monitor (12/17/24 20:14) Saline Lock (12/17/24 20:14) Oxygen (12/17/24 20:14) Electrocardiogram (12/17/24 20:14) Chest,Single View (12/17/24 20:38) PBNP (12/17/24 20:23) Hs Troponin I W Calculations (12/17/24 20:23) Hs Troponin I W Calculations (12/17/24 22:23) Hs Troponin I W Calculations (12/17/24 23:23) Page Hospitalist (12/18/24 01:30) Fill Out Med Reconciliation (12/18/24 01:30) Completed Orders - LAWSON HERCULES MD Cbc/Diff (12/17/24 20:14) BMP (12/17/24 20:14) PBNP (12/17/24 20:14) Electrocardiogram (12/17/24 20:14) Hs Troponin I W Calculations (12/17/24 20:14) Hs Troponin I W Calculations (12/17/24 22:14) Hs Troponin I W Calculations (12/17/24 23:14) Chest,Single View (12/17/24 20:38) Mag & Alum Hydrox/Simeth Susp (Maalox Or (12/18/24 01:30) Normal Saline 1000ml (0.9% Sodium Chlori (12/18/24 01:30) Lidocaine 2% Viscous (Xylocaine 2% Visco (12/18/24 01:30) Aspirin 81mg Chew Tablet (Aspirin 81mg C (12/18/24 01:30) Pantoprazole 40mg Iv (Protonix 40mg Iv) (12/18/24 02:00) Vital Signs 12/17/24 12/18/24 12/18/24 12/18/24 20:16 00:00 00:05 00:53 Temp 98.4 Pulse 63 66 68 Resp 18 21 18 B/P (MAP) 134/56 151/82 (105) 200/74 (116) Pulse Ox 98 100 100 O2 Flow Rate 0 0 0 Laboratory Tests Test 12/17/24 20:05 12/17/24 22:04 12/17/24 23:25 White Blood Count 3.4 L Red Blood Count 2.93 L Hemoglobin 9.9 L Hematocrit 28.8 L Mean Corpuscular Volume 98.1 H Mean Corpuscular Hemoglobin 33.9 H Mean Corpuscular Hemoglobin Concent 34.5 Red Cell Distribution Width 14.7 H Platelet Count 71 L Mean Platelet Volume 10.5 H Neutrophils (%) (Auto) 69.3 Lymphocytes (%) (Auto) 20.0 L Monocytes (%) (Auto) 8.1 Eosinophils (%) (Auto) 2.0 Basophils (%) (Auto) 0.6 Neutrophils # (Auto) 2.4 Lymphocytes # (Auto) 0.7 L Monocytes # (Auto) 0.3 Eosinophils # (Auto) 0.1 Basophils # (Auto) 0.0 CBC Comment Sodium Level 123 L Potassium Level 4.9 Chloride Level 92 L Carbon Dioxide Level 21.7 L Anion Gap 9 Blood Urea Nitrogen 26 H Creatinine 2.73 H Estimated GFR/1.73 m2 17 BUN/Creatinine Ratio 9.5 L Glucose Level 92 Calcium Level 9.3 Troponin I High Sensitivity 9 7 10 Pro-B-Type Natriuretic Peptide 932 H Albumin 3.8 Chemistry Comments Troponin I High Sens Percent Delta 22 42 Troponin I Hi Sens Absolute Change -2 3 Re-Evaluation Re-Evaluation : Re-Evaluation: Improved Progress Was seen and examined. Patient is given reassurance. Patient was having some chest pain symptoms due to GERD which were somewhat concerning for cardiac etiology. Patient received a GI cocktail. However patient also received an aspirin has been seen by a local hardware installer may need a stress test. If not cardiac catheterization. Unclear whether GI versus cardiac etiologies patient also received Protonix but for the heart failure patient also received some Lasix. Patient was then admitted to the hospitalist service for further workup and care and consultation with Cardiology. CBC shows low WBC at 3.4. Hemoglobin hematocrit also low at 10 and 28.8. MCV shows some macrocytosis at 98.1. Platelets low at 71. Patient is showing some metabolic derangements such as hyponatremia with a sodium of 123. BUN is 26 creatinine 2.73 with acute renal failure on chronic renal insufficiency. There is some metabolic acidosis with a chemistry of 21.7 CO2. Troponins are negative. Continuous cardiac care nurse interpretation shows normal sinus rhythm heart rate 60s, no ectopy, normal, my interpretation. Pulse oximetry monitor interpretation shows normal oxygenation at 99% room air, normal, my interpretation. EKG/XRAY/CT/US/VASC/MRI Chest X-Ray : Additional Comments CHEST RADIOGRAPH Indication: CP Technique: Single frontal view of the chest was obtained Comparison: DI CHEST,SINGLE VIEW on DOS: 12/19/23, DI CHEST,SINGLE VIEW on DOS: 07/27/23 FINDINGS: Lines and Tubes: None Lungs: No focal consolidation. Pleura: No effusion. No pneumothorax. Cardiomediastinal contours: Borderline cardiomegaly Bones: No acute osseous abnormality. IMPRESSION: No acute cardiopulmonary disease. Electronically Signed by:ROSALBA ARREOLA DO Date & Time: 12/17/242046 Heart Score: Heart Score Response (Comments) Value History Slightly Suspicious 0 EKG Repolarization Disturb 1 Age >65 2 Risk Factors 1 or 2 risk factors 1 Troponin Normal limit 0 Total 4 Medical Decision Making Additional info obtained from: old records Differential Dx:Considerations: Include: angina, aortic dissection, chest wall pain, cholelithiasis, CHF, costochondritis, esophageal reflux/spasm, gastritis, herpes zoster, myocardial infarction, pericarditis, pleuritis, pancreatitis, pneumonia, pneumothorax, pulmonary embolus, other Departure Time of Disposition: 01:35 Disposition: 09 ADMITTED INPATIENT Admitted to Inpatient Unit: yes, to hospitalist Impression: Primary Impression: Chest pain due to GERD Additional Impressions: Acute on chronic anemia Acute on chronic renal failure Qualified Codes: N17.9 - Acute kidney failure, unspecified; N18.4 - Chronic kidney disease, stage 4 (severe) Paroxysmal atrial fibrillation Hyponatremia Condition: Fair Referrals: NO PRIMARY CARE PROVIDER (PCP) Education Educated: Patient, Other Educated regarding: diagnosis, treatment, prognosis Signature Scribe Signature: Scribed for Lawson Hercules MD by Annie Gil . 12/18/24 01:29 Attestation: The note accurately reflects work and decisions made by me.Lawson Hercules MD 12/18/24 01:14 LAWSON HERCULES MD Dec 18, 2024 01:14 ANNIE BARCLAY Dec 18, 2024 01:29
[2024-12-18] MEDS ORDERED: pantoprazole 40MG/NS 100ML BAG 100 ML IV ONE (01:30)
[2024-12-18] MEDS: LIDOcaine 2% Viscous 15ml cup MM ONE (02:53)
[2024-12-18] MEDS: mag hydrox/Alum hydrox/simeth 30ml oral suspension PO ONE (02:53)
[2024-12-18] MEDS: normal saline 1000ml 1,000 ML IV ONE (02:59)
[2024-12-18] MEDS ORDERED: mag hydrox/Alum hydrox/simeth 30ml oral suspension PO PRN (03:05)
[2024-12-18] MEDS ORDERED: magnesium sulf-water 2g/50mL 50 ML IV PRN (03:05)
[2024-12-18] MEDS ORDERED: HYDROmorphone inj. 0.5 MG/0.5 ML DISP.SYRIN IV PRN (03:05)
[2024-12-18] MEDS ORDERED: potassium Cl 20 mEq SR tablet PO PRN ×2 (03:05)
[2024-12-18] MEDS ORDERED: magnesium sulf-water 4G/100mL 100 ML IV PRN (03:05)
[2024-12-18] MEDS ORDERED: potassium Cl 40MEQ/1/2NS 520ml 520 ML IV PRN (03:05)
[2024-12-18] MEDS ORDERED: ondansetron/PF 4mg/2ml inj IV PRN (03:05)
[2024-12-18] MEDS ORDERED: HYDROmorphone/PF 0.2 MG/ML SYRINGE IV PRN (03:05)
[2024-12-18] MEDS ORDERED: magnesium Cl slow-release 64mg tablet PO PRN (03:05)
[2024-12-18] MEDS ORDERED: HYDROcodone/acetaminophen 5mg/325mg tablet PO PRN (03:05)
--- NOTE | 2024-12-18 03:15 | HISTORY AND PHYSICAL-Residence ---
History & Physical Providers to CC Resident Creating Document: RADHAJONNY, BENITA ~ History of Present Illness Primary Medical Doctor: dalton Reason for Admit\Complaint: BRANDON/CHEST PAIN/CHF History of Present Illness This is a 74-year-old female known case of hypertension,GERD presented to ER with complain of chest pain, vomitting ,nausea since 1 week. Patient states that chest pain is intermittent, since 1 week but yestraday when she woke up in the morning her chest pain which was continous and grades it 6/10 in severity and today it became severe enough that prompted her to come to ER , her chest pain was radiating to right shoulder and right side of neck, patient says pain is not aggravted or relieved by anymovement but it is associated with nausea and vomitting, patient denies shortness of breath. Patient denies any history of heart failure. Patient states that her echo was done last year and her interpreter is In addition to that patient has chronic history of GERD which was diagnosed 10 years ago, and she feels burning pain in her chest, and almost mentions that she have waves of nauses which comes upto the level of throat. Her last endoscopy was done 2 years ago which she patient it showed precancerous esophagus scarring,colonscopy was also done 2 years ago which showed polyp and were removed. Her Gastroenterlogist is Dr Vega. Allergies: Coded Allergies: No Known Allergies (Unverified , 12/17/24) Home Medications Home Medications Active IPRAT-ALBUT 0.5-3(2.5) MG/3 ML nebule (Ipratropium/Albuterol Sulfate) 0.5 Mg-3 Mg (2.5 Mg Base)/3 Ml Ampul.neb 3 Ml NEB Q6H PRN 10 Days Reported Entresto 24 mg-26 mg Tablet (Sacubitril/Valsartan) 24 Mg-26 Mg Tablet 1 Tab PO Q12H 30 Days Metoprolol Succinate 25 Mg Tab.sr.24h 1 Tab PO DAILY Furosemide 20 Mg Tablet 60 Mg PO BID Atorvastatin Calcium 40 Mg Tablet 1 Tab PO HS Pantoprazole Sodium 40 Mg Tablet.dr 1 Tab PO HS Past Medical History Past Medical History GERD Hypertension Hyperlipidemia Past Surgical History Surgical History Comment Knee replacement Cataract surgery Family History Family History: FH: heart disease (dad had heart disease) Past Social History Social History Comment No smoking history Patient drinks alcohol 2 glasses martini daily. No illicity drug use history Patient lives in home with her friend Occupation: unemployed ROS ROS All systems were reviewed and found negative except for pertinent positive mentioned in HPI. Exam Vitals: Vital Signs Date Time Temp Pulse Resp B/P (MAP) Pulse Ox O2 Delivery O2 Flow Rate FiO2 12/18/24 00:53 68 18 200/74 (116) 100 0 12/17/24 20:16 98.4 General: General: awake, alert oriented to place, time, and person HEENT: No pallor present, no icterus, moist mucous membranes Neck: No masses and tenderness Resp: Unlabored. Mild Crackles in lungs bilaterally Chest: Normal expansion. Cardiovascular: Regular Rate and rhythm, normal S1 and S2 without murmur, rub or gallop Abdomen: Soft and non tender, no organomegaly, no guarding and rigidity, bowel sounds present Neuro: No focal weakness in the upper and lower limb muscles, power of the muscles 5/5 bilateral upper and lower extremities, normal reflexes bilaterally. Cranial nerves intact Extremities: No cyanosis,clubbing, 2+ Edema noted in both lower legs and feet. Skin: Warm and Dry. No lesions Psych: Normal affect Diagnostic Data Last Recorded Lab Results: 12/17/24200412/17/242004 Advance Care Planning Advanced Care plannin - 30 Minutes (I spent 17 minutes in discussing various resuscitative measures with the patient and she chose to be full code.) Additional Plan This is a 74-year-old female known case of hypertension,GERD presented to ER with complain of chest pain, vomitting ,nausea since 1 week. Patient states that chest pain is intermittent, since 1 week but yestraday when she woke up in the morning her chest pain which was continous and grades it 6/10 in severity and today it became severe enough that prompted her to come to ER. Plan Chest Pain, possible Unstable angina Acute on Chronic Congestive Heart Failure with Preserved Ejection Fraction Pro BNP 932 Heart score is 3 troponin negative Chest x-ray: No acute cardiopulmonary disease, cardiomegaly noted Start Lasix 40 mg BID Continue metoprolol Sacubtril/Valsartan on hold due to kidney function Follow up with Echo Lexiscan ordered Can optimize GDMT after echo result Keep NPO for lexiscan. New Onset Atrial Fibrillation [id number] score is 4 EKG shows atrial fibrillation Night Intesivist recommended to hold Elliquis. TSH ordered Monitor HR Normocytic Anemia most likely Chronic Hb 9.9 Iron profile has been ordered Monitor CBC Ocult blood test ordered. Pancytopenia most likely Chronic Uncertain cause at this time WBC: 3.4 RBC: 2.93 PLATELET: 71 Monitor CBC patient on heparin dvt prophylaxis, monitor for further thromboctypenia. Acute Kidney Injury on Chronic Kidney Disease Patient baseline creatinine is 1.55 Today its 2.73 Sacubtril/Valsartan on hold due to kidney function Restrict fluids for now patient edematous. Follow up with renal ultrasound. Follow up with CMP Follow up with UA, Urine lytes ordered. Hyponatremia hypervolemic likely. Na is 123 Urine osmolality, urine spot na ,k and creatinine ordered to find out etiology of hyponatremia Follow up with serum osmolality Follow up with urine osmolarity. Restrict fluids to 1.2 liters a day. GERD IV protonix 40 mg daily Her endoscopy was done 2 years ago which showed precanceious scarring in esophagus and colonscopy last 2 years polyp were removed. Occult blood testing ordered Consult Gasteroenterologist Hyperlipidemia Continue atorvastatin 40 mg daily Follow up with lipid panel Hypertension Continue Metoprolol Sacubtril/losartan on hold due to kidney function Morbid Obesity Mild malnutrition BMI : 43 DVT Prophylaxis: Heparin Code Status: Full Code Jonny Tolbert PGY1- INTERNAL MEDICINE RESIDENT Date of Service: Dec 18, 2024 Billing Provider: RAJESH BOWERS MD, SANJAY, RES Dec 18, 2024 03:15
[2024-12-18] MEDS ORDERED: PERFLUTREN PROTEIN-A MICROSPHR (Optison) 0.22 MG/ML 3ML VIAL IV PRN (03:20)
[2024-12-18] MEDS ORDERED: aminophylline 250mg/10ml inj. IV PRN (04:25)
[2024-12-18] MEDS ORDERED: metoprolol tartrate 1mg/ml inj IV PRN (04:25)
[2024-12-18] MEDS: docusate sod 100mg capsule PO SCH (08:00)
[2024-12-18] MEDS: heparin, porcine 5000 units/ml vial SQ SCH (08:00)
[2024-12-18] MEDS: K and/or MAG REPLACEMENT MC SCH (08:00)
--- NOTE | 2024-12-18 08:00 | ELECTROCARDIOGRAPH REPORT ---
[facility] Test Date: 2024-12-17 Test Time: 20:04:40 Pat Name: ROSANNE ARRINGTON Department: EMERGENCY ROOM Room: [place] [address] A Gender: F Coordinator Volunteer Services: STEVEN : 1950 Requested By: MARY CONNORS Order Number: [id number] Reading MD: Dr. Mary Connors Measurements Intervals [place] Rate: 62 P: 0 MS: 0 QRS: 101 QRSD: 135 T: 56 QT: 425 QTc: 432 Interpretive Statements Atrial fibrillation Nonspecific intraventricular conduction delay Baseline wander in lead(s) V3 Electronically Signed On 12-18-2024 22:09:[address] Mary Connors Please click the below link to view image of tracing.
[2024-12-18 08:43] LABS: OSMOLALITY 271 MOSM/K (280-300)
[2024-12-18 08:54] LABS: EOSINOPHILS % (MANUAL) 3.0 % (0-6); LYMPHOCYTES % (MANUAL) 21.0 % (21-51); MONOCYTES % (MANUAL) 3.0 % (2-12); NEUTROPHILS % (MANUAL) 73.0 % (42-75)
[2024-12-18 08:56] LABS: PLATELET ESTIMATE DECREASED
[2024-12-18 09:03] LABS: CHOL/HDL RATIO 1.8 (0.00-4.99); LDL CHOLESTEROL 49 MG/DL (50-100)
[2024-12-18] MEDS: furosemide 10 MG/1 ML 10ml inj IV SCH (09:04)
[2024-12-18] MEDS: metoprolol succinate 25mg (24-HOUR) SR. Tablet PO SCH (09:06)
[2024-12-18 09:19] LABS: % IRON SATURATION 30 % (11-46)
[2024-12-18] MEDS: regadenoson 0.4mg/5ml syringe IV PRN (10:50)
--- NOTE | 2024-12-18 12:22 | RADIOLOGY REPORT ---
Procedure: NM NM BRANDO SCAN Exam Date: 12/18/2024 10:02 AM Reason for study/Clinical History: CONGESTIVE HEART FAILURE Comparison Study: None Myocardial Perfusion Study with SPECT Technique: The patient received an intravenous injection of 8 mCi of technetium-99m sestamibi while at rest. After a short delay, SPECT tomographic images of the heart were obtained. The patient the n went to the stress lab where they received an intravenous Lexiscan utilizing standard protocol. 34 .6 mCi of technetium-99m sestamibi was injected intravenously immediately after the start of the i nfusion. Gated SPECT tomographic images of the heart were acquired and processed. Findings: Rotating planar images show no significant attenuation artifact. The left ventricular size is within normal limits. Ischemic changes involving the apical wall. Gated portion of the study shows normal wall motion and myocardial thickening. The left ventricular ejection fraction is 76%. (normal greater than 50%) Impression: Ischemic changes involving the apical wall. The left ventricular ejection fraction is 76%.
--- NOTE | 2024-12-18 17:05 | Visit Coding Note ---
Date of Service: Dec 18, 2024 Billing Provider: GAVIOTA ROSE MD Common Visit Codes: NOT BILLABLE GAVIOTA ROSE MD Dec 18, 2024 17:05
--- NOTE | 2024-12-18 17:06 | PROGRESS NOTE ---
Clinical Note Clinical Note Progress Note: Patient is a 74 years old female admitted early this morning for evaluation of chest pain. A Lexiscan showed ischemic changes involving the apical wall. Patient follows with Dr.A Ardon . I have reached out to him and will await cardiology input . GAVOITA ROSE MD Dec 18, 2024 17:06
--- NOTE | 2024-12-18 17:55 | RADIOLOGY REPORT ---
EXAM: US ULTRASOUND KIDNEY NON VASC INDICATION: Kidney injury TECHNIQUE: Multiple real-time sonographic images of the kidneys and bladder were obtained. COMPARISON: None Findings: Technically difficult exam due to overlying bowel gas. Right kidney measures 9.2 x 5.4 x 6.6 cm with normal contours, echotexture, and cortical thickness. N o evidence of hydronephrosis, calculi, cystic or solid lesions. Left kidney measures 10.6 x 4.6 x 6.3 cm with normal contours, echotexture, and cortical thickness. N o evidence of hydronephrosis, calculi, cystic or solid lesions. Urinary bladder is unremarkable without evidence of abnormal wall thickening, mass, or calculi. Prevo id volume 1078 mL. Postvoid volume was not obtained. Impression: 1. Unremarkable sonographic study of the bilateral kidneys and urinary bladder.
--- NOTE | 2024-12-18 19:10 | CARDIOLOGY REPORT ---
APPROVED REPORT EXAM: Comprehensive 2D, Doppler, and color-flow Echocardiogram. Patient Location: 302 Blood Pressure: 153/73 mmHg Heart Rate: 56-72 bpm Rhythm: Atrial Fibrillation Indications Chest Pain CHF AFIB Pro BNP 932 Hypertension Information Systems Director is Lele Ardon MD Previous echo 07/27/23 [facility] 65% EF ; mod TR ; RVSP 48 2D Dimensions LA Diam4.8 cm IVSd 1.1 (0.7-1.1cm) LVDd 5.7 cm PWd 1.1 (0.7-1.1cm) IVSs 1.7 (0.8-1.2cm) LVDs 3.3 (2.5-4.0cm) Aortic Root(2D) 3.1 cm PWs 1.6 (0.8-1.2cm) LVOT Diameter 2.02 (1.8-2.4cm) LVEF(%) 72.1 (>50%) Ao Asc Diam.3.38 cmIVC 28.35 mm FS (%) 41.8 % SV 113.9 ml CO 6.4 L/min M-Mode Dimensions MV EPSS 0.7 (<0.5cm) Aortic Valve AoV Peak Jose. 189.4 cm/s AoV VTI 44.2 cm AO Peak GR. 14.4 mmHg AO Mean GR. 8 mmHg LVOT VTI 34.73 cm LVOT Peak Jose. 132.8 cm/s MARIAM(VTI)/BSA 2.51 cm2/m2 MARIAM (VTI) 2.51 cm2 Mitral Valve MV E Velocity 163.2 cm/s MV Peak Gr. 10 mmHg MV DECEL TIME 172 ms MV PHT 68 ms MVA (PHT) 3.24 cm2 MV UZal073.7 cm/s Tricuspid Valve TR P. Velocity 293 cm/s RAP ESTIMATE 15 mmHg TR Peak Gr. 34 mmHg RVSP 49 mmHg LEFT VENTRICLE LV is mildly dilated with normal wall thickness. Overall systolic function is normal. LVEF is 65-70%. RIGHT VENTRICLE RV appears moderately dilated with normal contractility. RVSP IS estimated at 49 mmHG. ATRIA Left atrium is moderately dilated. AORTIC VALVE Trileaflet AV appears sclerotic without stenosis. No insufficiency. MITRAL VALVE MV is thickened with mild annular calcification and no stenosis. Trace mitral regurgitation. TRICUSPID VALVE The tricuspid valve is normal in structure. Moderate tricuspid regurgitation. PULMONIC VALVE The pulmonary valve is normal in structure. Trace pulmonic regurgitation. GREAT VESSELS The aortic root is normal in size. The ascending aorta is normal in size. IVC is dilated and collapse s greater than 50% with inspiration. PERICARDIUM There is no pericardial effusion. Other Information Study Quality: Adequate Conclusion LV is mildly dilated with normal wall thickness. Overall systolic function is normal. LVEF is 65-70%. RV appears moderately dilated with normal contractility. RVSP IS estimated at 49 mmHG. Left atrium is moderately dilated. Trileaflet AV appears sclerotic without stenosis. No insufficiency. MV is thickened with mild annular calcification and no stenosis. Trace mitral regurgitation. The tricuspid valve is normal in structure. Moderate tricuspid regurgitation. Trace pulmonic regurgitation. There is no pericardial effusion.
--- NOTE | 2024-12-18 21:43 | RADIOLOGY REPORT ---
EXAMINATIONS: 3 views of the right shoulder CLINICAL HISTORY: Shoulder pain RIGHT COMPARISON: None Findings and impression: No grossly displaced fractures, dislocations or bony destructive changes are evident on the provided views. Glenohumeral articulation appears relatively intact. If symptoms persist, follow-up MRI may be considered to further evaluate.
[2024-12-19] VITALS (7 sets, daily range): BP systolic 98–128; BP diastolic 28–46; PULSE 46–88; RESP 11–24; TEMP 96.7–98.1; O2SAT 94–100
[2024-12-19 07:30] LABS: RED CELL DISTRIBUTION WIDTH 14.7 % (11.5-14.5)
[2024-12-19 07:33] LABS: MEAN PLATELET VOLUME 10.6 FL (7.4-10.4)
[2024-12-19 07:41] LABS: APTT 29 SECONDS (22-32); INR 1.1 INR
[2024-12-19 08:18] LABS: EOSINOPHILS % (MANUAL) 3.0 % (0-6); LYMPHOCYTES % (MANUAL) 17.0 % (21-51); MONOCYTES % (MANUAL) 9.0 % (2-12); NEUTROPHILS % (MANUAL) 71.0 % (42-75); PLATELET ESTIMATE DECREASED
[2024-12-19 08:26] LABS: CHOL/HDL RATIO 1.8 (0.00-4.99); CREATININE 2.68 MG/DL (0.40-0.90); LDL CHOLESTEROL 47 MG/DL (50-100); TOTAL CARBON DIOXIDE 24.1 MMOL/L (24-32); eCRCL 18 ML/MIN; eGFR 17 ML/MIN
--- NOTE | 2024-12-19 08:44 | CONSULTATION REPORT ---
Cardiac Consultation Report Providers to CC CC: COLLIN JAY MD ~ Progress Note: 74yo woman with HTN, HLD, Afib, CKDIII/IV, GERD admitted with SOB/Nausea x 5 days. States she had nausea x 5 days then resulting in SOB and burning chest pains. Given persistence, decided to come in. Here, given GI cocktail after which symptoms resolved. Subjective Subjective No recurrence of CP. States SOB improved. Objective Vitals Vital Signs Date Time Temp Pulse Resp B/P (MAP) Pulse Ox O2 Delivery O2 Flow Rate FiO2 12/19/24 02:00 96.7 51 20 98/46 (63) 100 Room Air 12/18/24 06:46 0.0 Lab Results: 12/19/24 0639 12/19/24 0639 Objective GENERAL: Awake, alert ,NAD CV: ++Irreg rhythm, normal rate. No murmurs LUNGS: CTAB GI: +BS, soft, non-tender EXT: 2+ radial pulses, no edema PSYCH: cooperative Coagulation Studies Laboratory Tests Test 12/19/24 06:39 Prothrombin Time 11.6 SECONDS (9.0-12.0) INR International Normalized Ratio 1.1 INR Activated Partial Thromboplast Time 29 SECONDS (22-32) Coagulation Comments Problem\Assessment\Plan Problems/Diagnosis: (1) Chest pain due to GERD Assessment & Plan: Chest pain suspect non-cardiac given she reports severe GERD, resolved with GI cocktail. Had MPI concerning for apical ischemia, review of images shows fixed anterior defect(?possible breast attenuation, worse on rest images). TTE with preserved LVEF. --Cont Metop (2) Paroxysmal atrial fibrillation Assessment & Plan: Paroxysmal. CV 2. TTE with preserved LVEF. MPI without ischemia. --BBx as above --Agree with Eliquis 5mg BID (Cr>1.5, <80yo, >60kg) ATILIO JAY MD Dec 19, 2024 08:44
[2024-12-19] MEDS ORDERED: SPIR25TA5 PO (09:24)
--- NOTE | 2024-12-19 15:53 | PROGRESS NOTE ---
Daily Progress Note Providers to CC ~ Antibiotic Timeout Antibiotic Ordered?: No Subjective Patient has a new complaints. Denies having any chest pain. Objective Vital Signs Date Time Temp Pulse Resp B/P (MAP) Pulse Ox O2 Delivery O2 Flow Rate FiO2 12/19/24 11:00 98.0 46 18 114/40 (64) 100 Room Air 12/18/24 06:46 0.0 Result Diagram: 12/19/24 0639 12/19/24 0639 Awake cooperative in no acute distress HEENT normocephalic atraumatic extraocular movements are intact Neck supple, no JVD Chest: Clear to auscultation, no wheezes crackles rhonchi Heart regular rate rhythm, no murmur or gallop rub Abdomen is soft nontender no organomegaly Extremities: 1+ edema Neuro exam grossly nonfocal Coagulation Studies Laboratory Tests Test 12/19/24 06:39 Prothrombin Time 11.6 SECONDS (9.0-12.0) INR International Normalized Ratio 1.1 INR Activated Partial Thromboplast Time 29 SECONDS (22-32) Coagulation Comments Other Results Medications reviewed Problem\Assessment\Plan 74-year-old female known case of Hypertension,GERD presented to ER with complain of chest pain, vomitting ,nausea since 1 week. 1. Chest pain: ACS ruled out. Negative troponin. Patient has been with a Lexiscan which showed reversible ischemia at the apex. Cardiology consulted. No intervention recommended. Chest pain is likely unrelated to any cardiac issues and due to GERD. 2. Hyponatremia: Discontinue Lasix and monitor 3. Hypokalemia: Replace per protocol 4. Tawanda: Likely due to diuretics. Hold Lasix and monitor 5. Nausea: Resolved 6. Hyperlipidemia: Continue atorvastatin 7. GERD: Continue Protonix 8. Anemia: Likely of chronic disease. Continue monitor Disposition: Likely home in a.m. Date of Service: Dec 19, 2024 Billing Provider: GAVIOTA ROSE MD Common Visit Codes: [id number] INP/OBS CARE(HIGH) GAVIOTA ROSE MD Dec 19, 2024 15:53
[2024-12-19] MEDS: magnesium hydroxide 30ml (MOM) UD suspension PO PRN (19:29)
[2024-12-20 02:00] VITALS: BP 98/29; PULSE 64; RESP 15; TEMP 97.9; O2SAT 98
[2024-12-20 06:24] LABS: APTT 26 SECONDS (22-32); INR 1.1 INR
[2024-12-20 06:38] LABS: CREATININE 2.59 MG/DL (0.40-0.90); TOTAL CARBON DIOXIDE 27.6 MMOL/L (24-32); eCRCL 19 ML/MIN; eGFR 18 ML/MIN
[2024-12-20 06:41] VITALS: BP 96/44; PULSE 59; RESP 22; TEMP 97.4; O2SAT 95
[2024-12-20 06:41] LABS: RED CELL DISTRIBUTION WIDTH 14.7 % (11.5-14.5)
[2024-12-20 06:44] LABS: MEAN PLATELET VOLUME 10.6 FL (7.4-10.4)
[2024-12-20 08:04] VITALS: BP 123/58; PULSE 67
[2024-12-20 10:00] LABS: EOSINOPHILS % (MANUAL) 5.0 % (0-6); LYMPHOCYTES % (MANUAL) 27.0 % (21-51); MONOCYTES % (MANUAL) 8.0 % (2-12); NEUTROPHILS % (MANUAL) 60.0 % (42-75)
[2024-12-20 10:01] LABS: PLATELET ESTIMATE DECREASED
[2024-12-20 11:00] VITALS: BP 104/58; PULSE 60; RESP 15; TEMP 96.9; O2SAT 96
[2024-12-20] MEDS ORDERED: APIX5TAB3 PO (19:56)
--- NOTE | 2024-12-20 20:01 | DISCHARGE SUMMARY ---
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 Complications: none Condition on DC: Stable New Medications: Apixaban (Eliquis) 5 Mg Tablet 1 TAB PO Q12H for 30 Days, #60 TAB 0 Refills Continued Medications: Atorvastatin Calcium (Atorvastatin Calcium) 40 Mg Tablet 1 TAB PO HS Ipratropium/Albuterol Sulfate (IPRAT-ALBUT 0.5-3(2.5) MG/3 ML nebule) 0.5 Mg-3 Mg (2.5 Mg Base)/3 Ml Ampul.neb 3 ML NEB Q6H PRN for SOB or wheezing for 10 Days, ML Metoprolol Succinate (Metoprolol Succinate) 25 Mg Tab.sr.24h 1 TAB PO DAILY Pantoprazole Sodium (Pantoprazole Sodium) 40 Mg Tablet.dr 1 TAB PO HS, 0 Refills Sacubitril/Valsartan (Entresto 24 mg-26 mg Tablet) 24 Mg-26 Mg Tablet 1 TAB PO Q12H for 30 Days, #60 TAB 0 Refills Discontinued Medications: Furosemide (Furosemide) 20 Mg Tablet 60 MG PO BID Spironolactone (Spironolactone) 25 Mg Tablet 1 TAB PO DAILY Discharge Summary: The patient was admitted by resident physician ZACH Stephenson under the lackey pervision of RAJESH Negron MD with the following HPI:"This is a 74-year-old female known case of hypertension,GERD presented to ER with complain of chest pain, vomitting ,nausea since 1 week. Patient states that chest pain is intermittent, since 1 week but yestraday when she woke up in the morning her chest pain which was continous and grades it 6/10 in severity and today it became severe enough that prompted her to come to ER , her chest pain was radiating to right shoulder and right side of neck, patient says pain is not aggravted or relieved by anymovement but it is associated with nausea and vomitting, patient denies shortness of breath. Patient denies any history of heart failure. Patient states that her echo was done last year and her seafood technology specialist is In addition to that patient has chronic history of GERD which was diagnosed 10 years ago, and she feels burning pain in her chest, and almost mentions that she have waves of nauses which comes upto the level of throat. Her last endoscopy was done 2 years ago which she patient it showed precancerous esophagus scarring,colonscopy was also done 2 years ago which showed polyp and were removed. Her Gastroenterlogist is Dr Vega." The patient has a stress test that showed ischemic changes involving the apical wall and had a cardiology consult with Dr. Papa Ardon who assessed that the patient's chest pain was secondary to GERD and that is the patient has transthoracic echocardiogram demonstrated a preserved LVEF and recommended continue metoprolol has to start Eliquis 5 mg b.i.d. which has been sent off to the patient's pharmacy The patient was admitted with an acute kidney injury with a creatinine of 2.73 day discharge was 2.59 thus I recommended stopping furosemide the patient also was admitted with hyponatremia with serum sodium 123 which improved with holding Lasix and was 129 on the day discharge thus I also recommended stopping Lasix. The patient has a potassium level that is in the upper limits of normal on adm ission of 4.9 peaked at 5.3 and then normalized to 4.3 and on day discharge was 4.9 recommended the patient has stopped spironolactone and I recommended the patient recheck a metabolic panel in one-week to monitor her kidney function and blood potassium level. The patient has a anemia that was stable during hospitalization 9.9 hemoglobin on admission did drop slightly to 9.0 on the day discharge. Gen. No acute distress alert and oriented 4 Lungs clear to ascultation bilaterally, no wheezes rales or rhonchi appreciated Heart normal sinus rhythm no murmurs rubs or clicks noted Abdomen soft nontender bowel sounds are normoactive Lower extremities no clubbing cyanosis, nor edema appreciated bilaterally The patient felt ready to be discharged and was medically cleared to be discharged on 12/20/2024 The patient was seen and evaluated on day of discharge. Time spent on discharge 40 minutes *Problems/Diagnosis: (1) Chest pain due to GERD Status: Acute Total Time Spent on D/C: > 30 Minutes Date of Service: Dec 20, 2024 Billing Provider: ROBACK,JUSTUS T DO Common Visit Codes: 34006-CUH/OBS DISCH DAY >30min JUSTUS RIVERA DO Dec 20, 2024 19:49
== END 2024-12-20 12:45 | disposition home or self-care (01) | DRG 682 ==
LOC: ER 19:59 → ED HOLD 12-18 02:41 → PCU 3S 12-18 06:59
PROVIDERS: ADMIT Internal Medicine Sleep Medicine; ATTEND Internal Medicine
PROC: 4A02XM4 Measurement of Cardiac Total Activity, External Approach (ICD-10-PCS; principal; 2024-12-18)
PROC: 3E033HZ Introduction of Radioactive Substance into Peripheral Vein, Percutaneous Approach (ICD-10-PCS; 2024-12-18)
DX: N17.0 Acute kidney failure with tubular necrosis (principal); I50.33 Acute on chronic diastolic (congestive) heart failure; I13.0 Hypertensive heart and chronic kidney disease with heart failure and stage 1 through stage 4 chronic kidney disease, or unspecified chronic kidney disease; D61.818 Other pancytopenia; E87.1 Hypo-osmolality and hyponatremia; Z68.41 Body mass index [BMI] 40.0-44.9, adult; E44.1 Mild protein-calorie malnutrition; K21.9 Gastro-esophageal reflux disease without esophagitis; N18.4 Chronic kidney disease, stage 4 (severe); D64.9 Anemia, unspecified; E78.5 Hyperlipidemia, unspecified; E66.01 Morbid (severe) obesity due to excess calories; I48.0 Paroxysmal atrial fibrillation; Z79.01 Long term (current) use of anticoagulants
CPT/HCPCS: 36415; 71045; 73030; 76770; 78452; 80048; 80053; 80061; 82728; 83540; 83550; 83735; 83880; 83930; 84132; 84443; 84484; 85007; 85025; 85610; 85730; 87081; 93005; 93017; 93306; 96374; 97116; 97161; 97530; 99291; A9500; G0378; J1938; J2470; J2785; J7030

== ENCOUNTER 2024-12-31 10:31 | Outpatient (CLI) | payer MEDICARE, BC ==
[~2024-12-31 10:31] MED LIST changes: -ALBU18HF2 IH; +APIX5TAB3 PO; -FURO20TA4 PO
[2024-12-31 11:24] LABS: CREATININE 1.56 MG/DL (0.40-0.90); TOTAL CARBON DIOXIDE 23.6 MMOL/L (24-32); eGFR 33 ML/MIN
[2024-12-31 11:42] LABS: MEAN PLATELET VOLUME 10.2 FL (7.4-10.4); RED CELL DISTRIBUTION WIDTH 14.8 % (11.5-14.5)
== END 2024-12-31 23:59 | disposition home or self-care (01) ==
LOC: RAD 10:31
PROVIDERS: ATTEND Nurse Practitioner Family
DX: I50.9 Heart failure, unspecified (principal); R07.89 Other chest pain; N17.9 Acute kidney failure, unspecified; D61.818 Other pancytopenia
CPT/HCPCS: 80053; 85025

== ENCOUNTER 2025-01-23 13:20 | Outpatient (CLI) | payer MEDICARE, BC ==
--- NOTE | 2025-01-23 15:43 | RADIOLOGY REPORT ---
CLINICAL INFORMATION: 74 years old, Female; OTHER ACUTE RECURRENT SINUSITIS. TECHNIQUE: Axial CT images of the paranasal sinuses were obtained without contrast. Coronal and sagittal reformatted images were obtained, reviewed, and stored. One or more of the following dose reduction techniques were used: Automated exposure control. Adjustment of mA and/or kV according to patient size. CTDIvol = 54.49, 54.49, 0.14 mGy DLP = 803.46 mGy-cm COMPARISON: CT CT HEAD on DOS: 02/07/24 FINDINGS: Moderate mucosal thickening of the right maxillary sinus and mild mucosal thickening of the left maxillary sinus. There is a lobulated soft tissue density in the right maxillary sinus with associated calcifications, measuring up to 2.2 x 1.9 x 1.6 cm. Ostiomeatal complexes are patent. Minimal mucosal thickening of the ethmoid air cells. Frontal sinuses are clear. Sphenoethmoidal recesses and frontal recesses are patent. Sphenoid sinus is clear. Sinus garcia are intact with no evidence of dehiscence. Cribriform plate and lamina papyracea are intact. No mass or polyp identified in the nasal cavity. Nasal turbinates are within normal limits. Mild nasal septal deviation to the left with prominent left-sided septal spur. IMPRESSION: 1. Paranasal sinus disease as described above. 2. Lobulated soft tissue density in the right maxillary sinus with associated calcification. Fungal infection can not be excluded in the appropriate clinical setting. Correlate with clinical findings. 3. No erosive changes /dehiscence of the sinus gracia demonstrated on this exam.
== END 2025-01-23 23:59 | disposition home or self-care (01) ==
LOC: RAD 13:20
PROVIDERS: ATTEND Nurse Practitioner Family
DX: J32.0 Chronic maxillary sinusitis (principal); J01.81 Other acute recurrent sinusitis
CPT/HCPCS: 70486

== ENCOUNTER 2025-04-15 06:57 | Day surgery (SDC) | payer MEDICARE, BC ==
[2025-04-15] VITALS (15 sets, daily range): BP systolic 112–156; BP diastolic 48–65; PULSE 65–86; RESP 16–32; TEMP 98.2; O2SAT 91–98
[~2025-04-15] VITALS: Ht 167.6 cm; Wt 125.4 kg
[2025-04-15] MEDS: Cefazolin 3 GM/100ML NS IVPB 100 ML IV ONE (05:30)
[~2025-04-15 06:57] MED LIST changes: +FURO-150 PO; -IPRA3AMP9 NEB; +LEVO50CA5 PO; -METO-395 PO
[2025-04-15] MEDS: ringers solution, lacted 1,000 ML IV SCH ×2 (08:00→13:16)
[2025-04-15] MEDS: oxymetazoline 15 ML nasal spray NS ONE (08:02)
[2025-04-15 08:18] LABS: MEAN PLATELET VOLUME 10.4 FL (7.4-10.4); RED CELL DISTRIBUTION WIDTH 14.7 % (11.5-14.5)
[2025-04-15 08:28] LABS: CREATININE 1.29 MG/DL (0.40-0.90); TOTAL CARBON DIOXIDE 26.8 MMOL/L (24-32); eCRCL 36 ML/MIN; eGFR 40 ML/MIN
[2025-04-15 08:34] LABS: APTT 28 SECONDS (22-32); INR 1.2 INR
[2025-04-15] MEDS ORDERED: cocaine 4% topical solution 4ml bottle ONE (09:17)
[2025-04-15] MEDS ORDERED: epiNEPHrine 1 mg/ml 30ml MDV ONE (09:18)
[2025-04-15] MEDS ORDERED: LIDOcaine 1% W/epiNEPHrine 1:100,000 20ml vial ONE (09:18)
[2025-04-15] MEDS ORDERED: oxymetazoline 15 ML nasal spray NS ONE (09:18)
[2025-04-15] MEDS ORDERED: labetalol 20mg/4ml (5mg/ml) syringe IV PRN (10:00)
[2025-04-15] MEDS ORDERED: enalaprilat 1.25mg/ml 2ml vial IV PRN (10:00)
[2025-04-15] MEDS ORDERED: fentaNYL/PF 50MCG/1 ML 2ML syringe IV PRN ×2 (10:00)
[2025-04-15] MEDS ORDERED: morphine 4 MG/ML inj SYRINge IV PRN (10:00)
[2025-04-15] MEDS ORDERED: ondansetron/PF 4mg/2ml inj IV PRN (10:00)
[2025-04-15] MEDS ORDERED: HYDROmorphone/PF 0.2 MG/ML SYRINGE IV PRN ×2 (10:00)
[2025-04-15] MEDS ORDERED: fentaNYL/PF 50MCG/1 ML 2ML syringe ONE ×2 (10:31→12:04)
[2025-04-15] MEDS ORDERED: midazolam 1 mg/ML 2ml injection ONE (10:31)
[2025-04-15 10:38] LABS: EOSINOPHILS % (MANUAL) 2.0 % (0-6); LYMPHOCYTES % (MANUAL) 26.0 % (21-51); MONOCYTES % (MANUAL) 11.0 % (2-12); NEUTROPHILS % (MANUAL) 61.0 % (42-75); PLATELET ESTIMATE DECREASED
[2025-04-15] MEDS ORDERED: rocuronium 10mg/ml inj IV ONE (10:43)
[2025-04-15] MEDS ORDERED: propofol inj 20 ML IV ONE (10:43)
[2025-04-15] MEDS ORDERED: LIDOcaine 1%/PF 5ML 10 MG/ML VIAL ONE (10:43)
[2025-04-15] MEDS: tranexamic acid 1gm/0.7% sal. 100 ML IV ONE (13:08)
[2025-04-15] MEDS: ipratropium/albuterol 3ml nebule NEB STA (14:03)
[2025-04-15] MEDS: salt irrigation nasal spray 45 ML SPRAY NS PRN (14:10)
[2025-04-15] MEDS: mupirocin 2% nasal ointment 1gm UD NS ONE (14:11)
--- NOTE | 2025-04-15 14:23 | OPERATIVE REPORT ---
DATE OF SURGERY: 04/15/2025 DICTATING PHYSICIAN: El Panchal MD PREOPERATIVE DIAGNOSES: * Deviated nasal septum. * Hypertrophic inferior turbinates. 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 POSTOPERATIVE DIAGNOSES: * Deviated nasal septum. * Hypertrophic inferior turbinates. 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 PROCEDURES PERFORMED: * Septoplasty. * Submucous resection of left inferior turbinate. * Nasal endoscopy surgical with right partial ethmoidectomy. * Right medial maxillectomy. * Stereotactic computer-assisted navigational procedure, extracranial. SURGEON: El Panchal MD ANESTHESIA: General endotracheal, Dr. Ramires. HISTORY: The patient is a 75-year-old female with bilateral nasal airway obstruction and right facial pain and purulent rhinorrhea. On physical examination, the septum was deviated to the left. The inferior turbinates were hypertrophic. The CT scan showed complete opacification of right maxillary sinus with hyperopacification within suggesting fungal ball. The chronic infectious disease extended up into the right ethmoid sinus. On the base of the above findings, I felt the patient had deviated nasal septum, hypertrophic turbinates, and chronic rhinosinusitis with a fungal ball within the right maxillary sinus and the risks, alternatives, and benefits of surgery were explained to the patient and accepted. DESCRIPTION OF PROCEDURE: The patient was brought to the operating room, given a general endotracheal anesthesia, and prepped and draped in the usual fashion. 1% Xylocaine with 100,000 epinephrine was infiltrated into the planned surgical site utilizing headlight and endoscope. Image-guided system was attached to the patient and calibration and verification satisfactorily accomplished. The reason we had chosen to carry out this procedure under image guidance was the presence of severe tissue involvement at the floor of the orbit (roof of the maxillary sinus). The first procedure to be carried out was the septoplasty. An incision was made longitudinally along the length of a vomerian spur and a superior and inferior mucoperiosteal flap elevated endoscopically. Just prior to the spur, the septum was entered with a caudal elevator and a mucoperichondrial and mucoperiosteal flap elevated off of the contralateral side. Then, the deviated portions of the perpendicular plate of the ethmoid, vomer, and quadrilateral cartilage were removed. The septal flaps were coapted using a drop of fibrin glue. We turned our attention to the left inferior turbinate and carried out a submucous resection of the left inferior turbinate using the microshaver technique as follows: An anterior incision was made and then a medial flap elevated with suction elevator and caudal elevator. Then, a turbinate blade was placed into the pocket and the undersurface of the flap microshaved to remove the hypertrophic submucosal stroma. The conchal bone was lateralized. The anterior incision was closed with a drop of fibrin glue. We then turned our attention to the right-sided sinuses. With endoscope, we saw bulging of the right middle meatal lateral wall structures. This involved the uncinate process and bulla ethmoidalis and the medial maxillary wall. We entered into the hiatus semilunaris and removed the uncinate process using a combination of backbiting rongeur and microshaver. Then, hyperplastic tissue was removed from the ethmoid sinus using straight microshaver blades and Stapes curette. Finally, we turned our attention to the right maxillary sinus. We knew that a fungal ball was present within the sinus. The posterior fontanelle was penetrated with a curved probe and then this opened up the maxillary sinus medial wall maximally. This was aided with a curved microshaver blade. Immediately, we saw a mass of fungal debris filling the sinus. We attempted to remove all of this through the middle meatal maxillary approach, but this was futile due to the severe calcification and great extent of fungal debris within the floor of the maxillary sinus. Therefore, the decision was made to carry out a medial maxillectomy. This was done by first microshaving away the middle one-third of the inferior turbinate medial mucosa. We then took out the conchal bone middle one-third using sharp dissection. Finally, the medial wall was removed using a 15-degree high-speed ana maria gretchen down to the floor of the nose. This created a large opening into the maxillary sinus and we then commenced removing copious amounts of black fungus from the maxillary sinus. Once this was all accomplished, the sinus was irrigated to ensure complete removal. There was little to no pus present within the sinus and the only cultures taken were fungal. All of the debris was sent for histopathologic analysis, but certainly this appeared to be black to me suggesting aspergillus. Hemostasis was intact at the end of this procedure. Bactroban water soluble ointment was used to fill the right maxillary sinus and ethmoid cavity. Then, PosiSep was used to cover the wound margin. The PosiSep had been soaked in thrombin prior to placement. Two cottonoids were placed on the left and one cottonoid on the right. These will be removed in the recovery room leaving the patient unpacked. The patient tolerated the procedure well with accompaniment of a minimal blood loss. El Panchal MD TID: [id number] RECEIPT: [id number] DIEGO/PUR/SHILOH cc: Tera Charles
== END 2025-04-15 15:38 | disposition home or self-care (01) ==
LOC: PAS 06:57
PROVIDERS: ATTEND Otolaryngology
DX: J34.2 Deviated nasal septum (principal); J34.3 Hypertrophy of nasal turbinates; J32.9 Chronic sinusitis, unspecified; I10 Essential (primary) hypertension; E03.9 Hypothyroidism, unspecified; E66.01 Morbid (severe) obesity due to excess calories; K21.9 Gastro-esophageal reflux disease without esophagitis; I48.91 Unspecified atrial fibrillation; Z79.01 Long term (current) use of anticoagulants; Z79.890 Hormone replacement therapy; Z79.899 Other long term (current) drug therapy; Z96.651 Presence of right artificial knee joint; Z98.41 Cataract extraction status, right eye; Z98.42 Cataract extraction status, left eye; Z98.890 Other specified postprocedural states; Z68.41 Body mass index [BMI] 40.0-44.9, adult
CPT/HCPCS: 30140; 30520; 31254; 31267; 61782; 80053; 82948; 85025; 85610; 85730; 87102; 88300; 88304; 88311; 88312; 94640; 94760; A4618; A6402; A7000; J0169; J0690; J1938; J2250; J2704; J3010; J3490; J7030; J7040; J7120; Z7506; Z7508; Z7512; Z7610; 85007; A6449